=== PATIENT | male | born 1965 | race American Indian/Alaskan Native ===

== ENCOUNTER 2016-05-31 23:08 | Emergency (ER) | payer OTHER ==
[2016-06-01] MEDS ORDERED: XYLOCAINE 1% MPF 5 mL ONE (01:46)
[2016-06-01] MEDS ORDERED: TRIPLE ANTIBIOTIC TP ONE ×2 (01:47→07:09)
[2016-06-01] MEDS ORDERED: XYLOCAINE 1% 20 mL ONE (01:51)
[2016-06-01] MEDS ORDERED: BOOSTRIX IM ONE (03:38)
--- NOTE | 2016-06-01 03:45 | Emergency Department Report ---
Upper Extremity - HPI Chief Complaint: Extremity Injury, Lower Stated Complaint: LACERATION TO LEFT INDEX FINGER Time Seen by Provider: 06/01/16 03:39 Upper Extremity: Left Index Finger (laceration to left distal index finger at the DIP joint approximately 1.5 cm) Occurred When: Today Symptoms: Yes Pain with Movement, No Deformity, No Limited Range of Movement, No Numbness, No Weakness, No Swelling, No Bruising/Ecchymosis, No Laceration or Abrasion Other History: 50-year-old male presents with complaint of small laceration to left index finger directly overlying crease of the IP joint. Patient states he was using scissors slipped and cut him. At approximately 6 hours ago. Unsure of tetanus status ED Review of Systems ROS: Stated complaint: LACERATION TO LEFT INDEX FINGER Other details as noted in HPI Constitutional: denies: chills, fever Eyes: denies: eye pain, eye discharge, vision change ENT: denies: ear pain, throat pain Respiratory: denies: cough, shortness of breath, wheezing Cardiovascular: denies: chest pain, palpitations Endocrine: no symptoms reported Gastrointestinal: denies: abdominal pain, nausea, diarrhea Genitourinary: denies: urgency, dysuria Musculoskeletal: denies: back pain, joint swelling, arthralgia Skin: denies: rash, lesions Neurological: denies: headache, weakness, paresthesias Psychiatric: denies: anxiety, depression Hematological/Lymphatic: denies: easy bleeding, easy bruising ED Past Medical Hx - Past Medical History Previous Medical History?: Yes Hx Hypertension: Yes - Surgical History Past Surgical History?: No - Social History Smoking Status: Former Smoker Substance Use Type: None - Medications Home Medications: Home Medications Medication Instructions Recorded Confirmed Last Taken Type Ibuprofen [Motrin] 400 mg PO Q8H PRN #20 tablet 06/01/16 Unknown Rx Neomycn/Baci Zn/Pmyx Bs/Pramox 28 gm TP BID #1 oint...g. 06/01/16 Unknown Rx [Triple Antibioti-Pain Rlf Oint] Upper Extremity Exam - Exam General: Vital signs noted. No distress. Alert and acting appropriately. Head and Torso: No HEENT Abnormality, No Neck Tenderness, No Chest/Lungs Abnormality, No Abdominal Tenderness, No Back Tenderness Shoulder Exam: Yes Normal Range of Motion in Shoulder, No Shoulder Tenderness, No Clavicle Tenderness, No Shoulder Deformity, No AC Joint Tenderness Arm Exam: No Arm/Humerus Tenderness, No Arm Deformity Elbow: No Elbow Tenderness, No Normal Range of Motion in Elbow, No Elbow Deformity Forearm: No Forearm Tenderness, No Forearm Deformity, No Pain with Pronation, No Pain with Supination Wrist: Yes Normal ROM in Wrist, No Wrist Tenderness, No Wrist Deformity, No Snuffbox Tenderness, No Pain with Axial Thumb Compression Hand: Yes Digit Tenderness (mild tenderness at laceration site), Yes Normal ROM in Digit(s) (range of motion of finger flexion and extension at the IP PIP and MCP fully intact), No Hand Tenderness, No Hand Deformity, No Digit(s) Deformity , No Tendon Dysfunction CMS Exam: Yes Normal Distal Pulses, Yes Normal Capillary Refill, Yes Normal Distal Sensation, No Broken Skin ED Course Vital Signs 06/01/16 00:17 Temperature 98.4 F Pulse Rate 82 Blood Pressure 150/95 O2 Sat by Pulse 96 Oximetry - Laceration /Wound Repair Left Finger Wound Location: upper extremity Wound Length (cm): 1 Wound's Depth, Shape: superficial Wound Explored: clean Irrigated w/ Saline (ccs): 500 Betadine Prep?: Yes Anesthesia: 1% Lidocaine Volume Anesthetic (ccs): 2 Wound Debrided: minimal Suture Size/Type: 4:0, nylon Number of Sutures: 3 Layer Closure?: No Sterile Dressing Applied?: Yes (triple abx w/ gauze) ED Medical Decision Making - Medical Decision Making A/P: Fingertip laceration 1-sutures to be removed in 7-10 days. Distal capillary refill sensation and range of motion fingertip fully intact 2-Motrin when necessary, triple antibiotic ointment 3-tetanus updated today 4-placed in a finger splint Critical care attestation.: If time is entered above; I have spent that time in minutes in the direct care of this critically ill patient, excluding procedure time. ED Disposition Clinical Impression: Finger laceration Qualifiers: Encounter type: initial encounter Qualified Code(s): S61.219A - Laceration without foreign body of unspecified finger without damage to nail, initial encounter Disposition: DISCHARGED TO HOME OR SELFCARE Is pt being admited?: No Does the pt Need Aspirin: No Condition: Stable Instructions: Suture Care (ED), Laceration (ED) Additional Instructions: Sutures to be removed in 7-10 days Prescriptions: Ibuprofen [Motrin] 400 mg PO Q8H PRN #20 tablet PRN Reason: Pain Neomycn/Baci Zn/Pmyx Bs/Pramox [Triple Antibioti-Pain Rlf Oint] 28 gm TP BID #1 oint...g. Referrals: PRIMARY CARE, [Primary Care Provider] - 3-5 Days Forms: Work/School Release Form(ED), Accompanied Note Time of Disposition: 03:44
[2016-06-01] MEDS: BOOSTRIX IM ONE (04:01)
[2016-06-01 04:08] VITALS: BP 135/74
[2016-06-01] MEDS ORDERED: XYLOCAINE 1% 20 mL INFILTRATI ONE (07:09)
== END 2016-06-01 04:06 | disposition home or self-care (01) ==
LOC: ED 23:08
DX: S61.211A Laceration without foreign body of left index finger without damage to nail, initial encounter (principal); I10 Essential (primary) hypertension; Z87.891 Personal history of nicotine dependence; W26.8XXA Contact with other sharp object(s), not elsewhere classified, initial encounter; Y93.89 Activity, other specified; Y92.89 Other specified places as the place of occurrence of the external cause; Y99.8 Other external cause status
CPT/HCPCS: 90715; 96372; A6250